=== PATIENT | female | born 1985 | race American Indian/Alaskan Native ===

== ENCOUNTER 2018-03-18 16:00 | Emergency (ER) | payer OTHER ==
[2018-03-18 16:07] VITALS: BP 137/81
[2018-03-18] MEDS ORDERED: TORADOL IM ONE (16:14)
--- NOTE | 2018-03-18 16:18 | Emergency Department Report ---
ED Extremity Problem HPI - General Chief complaint: Extremity Problem,Nontraumatic Stated complaint: SHOULDER AND KNEE PAIN Time Seen by Provider: 03/18/18 16:10 Source: patient Mode of arrival: Ambulatory Limitations: No Limitations - History of Present Illness Initial comments: Patient is palpated 3 years old female with history of arthritis. Patient presented to the ER complaining of right shoulder pain and bilateral knee pain since last night. Patient denied any fever, nausea or vomiting. Patient stated that she's been taking Humira for her arthritis. Patient denies chest pain, shortness of breath, abdominal pain. MD Complaint: extremity pain, joint paint -: Last night Location: right, upper extremity History of Same: Yes -: Yes arthralgia Severity scale (0 -10): 6 Quality: stabbing Consistency: intermittent Improves with: immobilization Associated Symptoms: arthralgias. denies: chest pain, shortness of breath, fever, myalgias, rash - Related Data Allergies Allergy/AdvReac Type Severity Reaction Status Date / Time No Known Allergies Allergy Verified 04/21/16 20:42 ED Review of Systems ROS: Stated complaint: SHOULDER AND KNEE PAIN Other details as noted in HPI Comment: All other systems reviewed and negative Constitutional: denies: chills, fever Respiratory: denies: cough Cardiovascular: denies: chest pain, palpitations, dyspnea on exertion Gastrointestinal: denies: abdominal pain, nausea, vomiting, diarrhea, constipation, hematemesis, melena, hematochezia Genitourinary: denies: urgency Musculoskeletal: denies: back pain Neurological: denies: headache, weakness, numbness, paresthesias, confusion, abnormal gait ED Past Medical Hx - Past Medical History Previous Medical History?: Yes Hx Hypertension: Yes - Surgical History Past Surgical History?: No - Social History Smoking Status: Never Smoker Substance Use Type: None ED Physical Exam - General Limitations: No Limitations General appearance: alert, in no apparent distress - Head Head exam: Present: atraumatic, normocephalic, normal inspection - Eye Eye exam: Present: normal appearance, PERRL - ENT ENT exam: Present: normal exam, normal orophraynx, mucous membranes moist - Neck Neck exam: Present: normal inspection, full ROM. Absent: tenderness, meningismus, lymphadenopathy, thyromegaly - Respiratory Respiratory exam: Present: normal lung sounds bilaterally. Absent: respiratory distress, wheezes, rales, rhonchi, stridor, accessory muscle use, decreased breath sounds, prolonged expiratory - Cardiovascular Cardiovascular Exam: Present: regular rate, normal rhythm, normal heart sounds - GI/Abdominal GI/Abdominal exam: Present: soft, normal bowel sounds. Absent: distended, tenderness, guarding, rebound, rigid, organomegaly, mass, bruit, pulsatile mass , hernia - Extremities Exam Extremities exam: Present: normal inspection, normal capillary refill. Absent: full ROM, tenderness, pedal edema, joint swelling, calf tenderness - Back Exam Back exam: Present: normal inspection, full ROM. Absent: tenderness, CVA tenderness (R), CVA tenderness (L), muscle spasm, paraspinal tenderness, vertebral tenderness, rash noted - Neurological Exam Neurological exam: Present: alert, oriented X3, CN II-XII intact, normal gait - Skin Skin exam: Present: warm, intact, normal color ED Course Vital Signs 03/18/18 16:03 Temperature 97.7 F Pulse Rate 88 Respiratory 16 Rate Blood Pressure 137/81 O2 Sat by Pulse 97 Oximetry Critical care attestation.: If time is entered above; I have spent that time in minutes in the direct care of this critically ill patient, excluding procedure time. ED Disposition Clinical Impression: Right shoulder pain, Arthritis Disposition: - TO HOME OR SELFCARE Is pt being admited?: No Condition: Stable Instructions: Rheumatoid Arthritis (ED)
== END 2018-03-18 16:40 | disposition home or self-care (01) ==
LOC: ED 16:00
DX: M19.90 Unspecified osteoarthritis, unspecified site (principal); M25.511 Pain in right shoulder; I10 Essential (primary) hypertension
CPT/HCPCS: 96372; 99282; J1885

== ENCOUNTER 2021-01-30 09:47 | Emergency (ER) | payer MEDICARE ==
[2021-01-30] MEDS ORDERED: dexAMETHasone 20 MG/5 ML VIAL IM ONE (10:24)
[2021-01-30] MEDS ORDERED: diphenhydrAMINE 25 MG CAP PO ONE (10:24)
[2021-01-30] MEDS ORDERED: FAMOTIDINE 20 MG TAB PO ONE (10:24)
[2021-01-30] MEDS ORDERED: ACETAMINOPHEN 325 MG TAB PO ONE (10:24)
[2021-01-30 10:47] LABS: Basophils % (Auto) 0.4 % (0.0-1.8); Eosinophils % (Auto) 0.2 % (0.0-4.3); Hematocrit 42.1 % (30.3-42.9); Hemoglobin 14.4 gm/dl (10.1-14.3); Lymphocytes % (Auto) 20.3 % (13.4-35.0); Mean Corpuscular HGB Conc 34 % (30-34); Mean Corpuscular Volume 95 fl (79-97); Monocytes # (Auto) 0.2 K/mm3 (0.0-0.8); Monocytes % (Auto) 1.6 % (0.0-7.3); Platelet Count 376 K/mm3 (140-440); Red Blood Count 4.43 M/mm3 (3.65-5.03); Red Cell Distribution Width 13.4 % (13.2-15.2)
[2021-01-30 11:57] LABS: Alanine Aminotransferase 8 units/L (7-56); Albumin 3.4 g/dL (3.9-5); BUN/Creatinine Ratio 13; Blood Urea Nitrogen 12 mg/dL (7-17); Calcium 8.7 mg/dL (8.4-10.2); Hemolysis Index 15
--- NOTE | 2021-01-30 12:53 | Emergency Department Report ---
<GERI VICENTE - Last Filed: 01/30/21 13:08> - General Chief Complaint: Skin Rash Stated Complaint: ALLERGIC REACTION Time Seen by Provider: 01/30/21 10:14 - History of Present Illness Initial Comments: I evaluated patient. Patient has patchy rash in the extremities and torso. I suspect drug reaction. I have asked her to stop her new medications which included a pain medication and muscle relaxer. Patient takes Humira for hidradenitis. She did have tachycardia in triage. I do not suspect sepsis. CBC chemistry with normal meds. I do suspect that tachycardia due to anxiety. She denies chest pain shortness of breath. I have recommended steroids, H1 and H2 agonist. - Related Data Previous Rx's Medication Instructions Recorded Last Taken Type Ondansetron [Zofran Odt] 4 mg PO Q8HR PRN #14 tab.rapdis 03/18/18 Unknown Rx traMADoL [Ultram 50 MG tab] 50 mg PO Q4HR PRN #14 tablet 03/18/18 Unknown Rx Ketorolac [Toradol] 10 mg PO Q6H PRN #15 tablet 01/24/19 Unknown Rx methOCARBAMOL [Robaxin] 750 mg PO Q8H PRN #21 tablet 01/24/19 Unknown Rx Cetirizine HCl [Zyrtec 10mg tab] 10 mg PO DAILY #10 tablet 01/30/21 Unknown Rx Famotidine [Pepcid] 40 mg PO QHS #10 tablet 01/30/21 Unknown Rx Prednisone [predniSONE 10 mg 10 mg PO .TAPER #1 tab.ds.pk 01/30/21 Unknown Rx (6-Day Pack, 21 Tabs)] diphenhydrAMINE [Benadryl CAP] 25 mg PO Q8HR PRN #14 capsule 01/30/21 Unknown Rx Allergies Allergy/AdvReac Type Severity Reaction Status Date / Time No Known Allergies Allergy Verified 04/21/16 20:42 ED Past Medical Hx - Medications Home Medications: Home Medications Medication Instructions Recorded Confirmed Last Taken Type Ondansetron [Zofran Odt] 4 mg PO Q8HR PRN #14 tab.rapdis 03/18/18 Unknown Rx traMADoL [Ultram 50 MG tab] 50 mg PO Q4HR PRN #14 tablet 03/18/18 Unknown Rx Ketorolac [Toradol] 10 mg PO Q6H PRN #15 tablet 01/24/19 Unknown Rx methOCARBAMOL [Robaxin] 750 mg PO Q8H PRN #21 tablet 01/24/19 Unknown Rx Cetirizine HCl [Zyrtec 10mg tab] 10 mg PO DAILY #10 tablet 01/30/21 Unknown Rx Famotidine [Pepcid] 40 mg PO QHS #10 tablet 01/30/21 Unknown Rx Prednisone [predniSONE 10 mg 10 mg PO .TAPER #1 tab.ds.pk 01/30/21 Unknown Rx (6-Day Pack, 21 Tabs)] diphenhydrAMINE [Benadryl CAP] 25 mg PO Q8HR PRN #14 capsule 01/30/21 Unknown Rx ED Medical Decision Making - Lab Data Result diagrams: 01/30/21 10:32 01/30/21 10:32 ED Disposition Clinical Impression: Allergic reaction Qualifiers: Encounter type: initial encounter Qualified Code(s): T78.40XA - Allergy, unspecified, initial encounter Disposition: TO HOME OR SELFCARE Condition: Stable Instructions: Drug Rash Additional Instructions: please take medication as prescribed. do not drive or operate heavy machinery while taking benadryl due to drowsiness. please stop taking the two new medications and add to your allergy list. follow up with your primary care doctor. return to the emergency room immediately for any new or worsening symptoms. Prescriptions: Famotidine [Pepcid] 40 mg PO QHS #10 tablet diphenhydrAMINE [Benadryl CAP] 25 mg PO Q8HR PRN #14 capsule PRN Reason: itching/rash Prednisone [predniSONE 10 mg (6-Day Pack, 21 Tabs)] 10 mg PO .TAPER #1 tab.ds.pk Cetirizine HCl [Zyrtec 10mg tab] 10 mg PO DAILY #10 tablet Referrals: PRIMARY CARE, [Primary Care Provider] - 2-3 Days Print Language: OCCITAN <ANNEL TREVIZO - Last Filed: 01/30/21 21:28> - General Source: patient Mode of arrival: Ambulatory Limitations: No Limitations - History of Present Illness Initial Comments: Patient is a 35-year-old female presents emergency room complaints of a possible allergic reaction that began a couple days ago. Patient states that she has a diffuse rash which itches. She states that she is also had a sore throat for a few days. She states that she recently did just change to gain detergent. States that she also took 2 new medications, she states that she saw her [place] a few days ago for a muscle strain and was given a muscle relaxer and a pain reliever but she is not sure what she is taking. She denies any facial swelling, shortness of breath, difficulty swallowing, sensation of throat closing, chest pain, shortness of breath, palpitations, fever, cough, nausea, vomiting, diarrhea. She denies any sick contacts or recent travel. She has past medical history of hypertension, depression, anxiety. No allergies to medications. ED Review of Systems ROS: Stated complaint: ALLERGIC REACTION Other details as noted in HPI Comment: All other systems reviewed and negative ED Past Medical Hx - Past Medical History Previous Medical History?: Yes Hx Hypertension: Yes Hx Psychiatric Treatment: (Depression,anxiety) - Social History Smoking Status: Current Every Day Smoker Substance Use Type: None ED Physical Exam - General Limitations: No Limitations General appearance: alert, in no apparent distress - Head Head exam: Present: atraumatic, normocephalic - Eye Eye exam: Present: normal appearance - ENT ENT exam: Present: normal orophraynx, mucous membranes moist - Respiratory Respiratory exam: Present: normal lung sounds bilaterally. Absent: respiratory distress, wheezes, rales, rhonchi, stridor, chest wall tenderness, accessory muscle use, decreased breath sounds, prolonged expiratory - Cardiovascular Cardiovascular Exam: Present: normal rhythm, tachycardia, normal heart sounds. Absent: systolic murmur, diastolic murmur, rubs, gallop - Neurological Exam Neurological exam: Present: alert, oriented X3 - Psychiatric Psychiatric exam: Present: normal affect, normal mood - Skin Skin exam: Present: warm, dry, rash (diffuse erythematous macules and patches pr esent diffusely, no blistering, no necrosis, no signs of infection, no skin denuding) ED Course Vital Signs 01/30/21 01/30/21 10:10 13:04 Temperature 99.1 F 98.6 F Pulse Rate 134 H 119 H Respiratory 18 Rate Blood Pressure 138/68 135/78 [Right] O2 Sat by Pulse 98 100 Oximetry ED Medical Decision Making - Lab Data Result diagrams: 01/30/21 10:32 01/30/21 10:32 Lab Results 03/01/30/21 01/30/21 Range/Units 10:32 10:32 10:32 WBC 9.7 (4.5-11.0) K/mm3 RBC 4.43 (3.65-5.03) M/mm3 Hgb 14.4 H (10.1-14.3) gm/dl Hct 42.1 (30.3-42.9) % MCV 95 (79-97) fl MCH 33 H (28-32) pg MCHC 34 (30-34) % RDW 13.4 (13.2-15.2) % Plt Count 376 (140-440) K/mm3 Lymph % (Auto) 20.3 (13.4-35.0) % Mccreary % (Auto) 1.6 (0.0-7.3) % Eos % (Auto) 0.2 (0.0-4.3) % Baso % (Auto) 0.4 (0.0-1.8) % Lymph # (Auto) 2.0 (1.2-5.4) K/mm3 Mccreary # (Auto) 0.2 (0.0-0.8) K/mm3 Eos # (Auto) 0.0 (0.0-0.4) K/mm3 Baso # (Auto) 0.0 (0.0-0.1) K/mm3 Seg Neutrophils % 77.5 H (40.0-70.0) % Seg Neutrophils # 7.5 (1.8-7.7) K/mm3 Sodium 135 L (137-145) mmol/L Potassium 4.2 (3.6-5.0) mmol/L Chloride 102.0 (98-107) mmol/L Carbon Dioxide 24 (22-30) mmol/L Anion Gap 13 mmol/L BUN 12 (7-17) mg/dL Creatinine 0.9 (0.6-1.2) mg/dL Estimated GFR > 60 ml/min BUN/Creatinine Ratio 13 % Glucose 105 H (65-100) mg/dL Calcium 8.7 (8.4-10.2) mg/dL Magnesium 1.90 (1.7-2.3) mg/dL Total Bilirubin 0.40 (0.1-1.2) mg/dL AST 13 (5-40) units/L ALT 8 (7-56) units/L Alkaline Phosphatase 96 (35-129) units/L Total Creatine Kinase 108 (30-135) units/L Total Protein 7.5 (6.3-8.2) g/dL Albumin 3.4 L (3.9-5) g/dL Albumin/Globulin Ratio 0.8 % HCG, Qual Negative (Negative) Vital Signs 01/30/21 01/30/21 10:10 13:04 Temperature 99.1 F 98.6 F Pulse Rate 134 H 119 H Respiratory 18 Rate Blood Pressure 138/68 135/78 [Right] O2 Sat by Pulse 98 100 Oximetry - Medical Decision Making Patient is a 35-year-old female presents emergency room complaints of a possible allergic reaction that began a couple days ago. Patient states that she has a diffuse rash which itches. She states that she is also had a sore throat for a few days. She states that she recently did just change to gain detergent. States that she also took 2 new medications, she states that she saw her [place] a few days ago for a muscle strain and was given a muscle relaxer and a pain reliever but she is not sure what she is taking. She denies any facial swelling, shortness of breath, difficulty swallowing, sensation of throat closing, chest pain, shortness of breath, palpitations, fever, cough, nausea, vomiting, diarrhea. She denies any sick contacts or recent travel. She has past medical history of hypertension, depression, anxiety. No allergies to medications. Initial vitals with elevated heart rate of 134, on repeat heart rate has slightly improved to 119. On exam: diffuse erythematous macules and patches present diffusely, no blistering, no necrosis, no signs of infection, no skin denuding. Examination appears could be consistent with a drug reaction. No signs of angioedema or anaphylaxis. Labs are normal. Discussed case with Dr. Sea Vicente, ER attending who evaluated patient, she agrees that this is likely drug reaction, advised to stop medication, give patient steroids, Zyrtec, Pepcid. I discussed all findings with patient and discussed the importance of stopping new medications and to write these on her allergy list. Patient does have a history of anxiety, tachycardia could be secondary to her anxiety, she has had an elevated heart rate charted in the emergency department before. Patient was given medications while in the emergency department she states that she is feeling much better, she states that her itching has resolved, she denies any palpitations, chest pain, shortness of breath. She has no mucosal involv ement, no signs of SJS. Patient given prescription for prednisone, Zyrtec, Benadryl, Pepcid. Advised patient please take medication as prescribed. do not drive or operate heavy machinery while taking benadryl due to drowsiness. please stop taking the two new medications and add to your allergy list. follow up with your primary care doctor. return to the emergency room immediately for any new or worsening symptoms. - Differential Diagnosis Allergic reaction, drug reaction, contact dermatitis, irritant dermatitis Critical care attestation.: If time is entered above; I have spent that time in minutes in the direct care of this critically ill patient, excluding procedure time. ED Disposition Is pt being admited?: No Does the pt Need Aspirin: No Time of Disposition: 13:05
[2021-01-30 13:05] VITALS: BP 135/78
== END 2021-01-30 13:10 | disposition home or self-care (01) ==
LOC: ED 09:47
DX: T78.40XA Allergy, unspecified, initial encounter (principal); I10 Essential (primary) hypertension; F32.9 Major depressive disorder, single episode, unspecified; F41.9 Anxiety disorder, unspecified; F17.200 Nicotine dependence, unspecified, uncomplicated; Z79.899 Other long term (current) drug therapy; X58.XXXA Exposure to other specified factors, initial encounter
CPT/HCPCS: 36415; 80053; 82550; 83735; 84703; 85025; 96372; 99283; J1100

== ENCOUNTER 2021-07-06 09:40 | Emergency (ER) | payer MEDICARE ==
[2021-07-06 10:01] VITALS: BP 141/78
[2021-07-06] MEDS ORDERED: CYCLOBENZAPRINE 10 MG TAB PO ONE (11:50)
[2021-07-06] MEDS ORDERED: KETOROLAC 60 MG/2 ML INJ IM ONE (11:50)
--- NOTE | 2021-07-06 11:58 | Emergency Department Report ---
ED Back Pain/Injury HPI - General Chief Complaint: Back Pain/Injury Stated Complaint: BACK PAIN Time Seen by Provider: 07/06/21 11:47 Source: patient Limitations: No Limitations - History of Present Illness Initial Comments: Patient is a 36-year-old female presents emergency room complaints of low back pain that began 2 days ago. She states that her pain began when she was at work. 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 She denies any fall or injury. She denies any fever, nausea, vomiting, diarrhea, urinary symptoms, numbness, weakness, bowel or bladder incontinence, saddle numbness. she denies any steroid use, history of cancer, IV drug use. States that she has a past medical history of hidradenitis. No allergies to medications. Last menstrual cycle 06/26/2021. - Related Data Previous Rx's Medication Instructions Recorded Last Taken Type Ondansetron [Zofran Odt] 4 mg PO Q8HR PRN #14 tab.rapdis 03/18/18 Unknown Rx traMADoL [Ultram 50 MG tab] 50 mg PO Q4HR PRN #14 tablet 03/18/18 Unknown Rx Ketorolac [Toradol] 10 mg PO Q6H PRN #15 tablet 01/24/19 Unknown Rx methOCARBAMOL [Robaxin] 750 mg PO Q8H PRN #21 tablet 01/24/19 Unknown Rx Cetirizine HCl [Zyrtec 10mg tab] 10 mg PO DAILY #10 tablet 01/30/21 Unknown Rx Famotidine [Pepcid] 40 mg PO QHS #10 tablet 01/30/21 Unknown Rx Prednisone [predniSONE 10 mg 10 mg PO .TAPER #1 tab.ds.pk 01/30/21 Unknown Rx (6-Day Pack, 21 Tabs)] diphenhydrAMINE [Benadryl CAP] 25 mg PO Q8HR PRN #14 capsule 01/30/21 Unknown Rx Menthol/Camphor [[place] 1 applicatio TP BID #18 oint...g. 07/06/21 Unknown Rx Ointment] Naproxen 375 mg PO BID PRN #20 tablet 07/06/21 Unknown Rx methOCARBAMOL [Robaxin TAB] 500 mg PO BID PRN #14 tab 07/06/21 Unknown Rx Allergies Allergy/AdvReac Type Severity Reaction Status Date / Time No Known Allergies Allergy Verified 07/06/21 09:59 ED Review of Systems ROS: Stated complaint: BACK PAIN Other details as noted in HPI Comment: All other systems reviewed and negative ED Past Medical Hx - Past Medical History Hx Hypertension: Yes Hx Psychiatric Treatment: (Depression,anxiety) - Social History Smoking Status: Current Every Day Smoker Substance Use Type: None - Medications Home Medications: Home Medications Medication Instructions Recorded Confirmed Last Taken Type Ondansetron [Zofran Odt] 4 mg PO Q8HR PRN #14 tab.rapdis 03/18/18 Unknown Rx traMADoL [Ultram 50 MG tab] 50 mg PO Q4HR PRN #14 tablet 03/18/18 Unknown Rx Ketorolac [Toradol] 10 mg PO Q6H PRN #15 tablet 01/24/19 Unknown Rx methOCARBAMOL [Robaxin] 750 mg PO Q8H PRN #21 tablet 01/24/19 Unknown Rx Cetirizine HCl [Zyrtec 10mg tab] 10 mg PO DAILY #10 tablet 01/30/21 Unknown Rx Famotidine [Pepcid] 40 mg PO QHS #10 tablet 01/30/21 Unknown Rx Prednisone [predniSONE 10 mg 10 mg PO .TAPER #1 tab.ds.pk 01/30/21 Unknown Rx (6-Day Pack, 21 Tabs)] diphenhydrAMINE [Benadryl CAP] 25 mg PO Q8HR PRN #14 capsule 01/30/21 Unknown Rx Menthol/Camphor [[place] 1 applicatio TP BID #18 oint...g. 07/06/21 Unknown Rx Ointment] Naproxen 375 mg PO BID PRN #20 tablet 07/06/21 Unknown Rx methOCARBAMOL [Robaxin TAB] 500 mg PO BID PRN #14 tab 07/06/21 Unknown Rx ED Physical Exam - General Limitations: No Limitations General appearance: alert, in no apparent distress - Head Head exam: Present: atraumatic, normocephalic - Eye Eye exam: Present: normal appearance - ENT ENT exam: Present: mucous membranes moist - Neck Neck exam: Present: normal inspection, full ROM. Absent: tenderness, meningismus - Respiratory Respiratory exam: Present: normal lung sounds bilaterally. Absent: respiratory distress, wheezes, rales, rhonchi, stridor, chest wall tenderness, accessory muscle use, decreased breath sounds, prolonged expiratory - Cardiovascular Cardiovascular Exam: Present: regular rate, normal rhythm, normal heart sounds. Absent: systolic murmur, diastolic murmur, rubs, gallop - Back Exam Back exam: Present: normal inspection, full ROM, paraspinal tenderness (left lumbar paraspinal muscular ttp, no midline C-spine, T-spine or L-spine ttp, no step offs, no deformities). Absent: vertebral tenderness - Neurological Exam Neurological exam: Present: alert, oriented X3, CN II-XII intact, normal gait. Absent: motor sensory deficit - Psychiatric Psychiatric exam: Present: normal affect, normal mood - Skin Skin exam: Present: warm, dry, intact ED Course Vital Signs 07/06/21 10:00 Temperature 97.9 F Pulse Rate 97 H Respiratory 12 Rate Blood Pressure 141/78 [Left] O2 Sat by Pulse 99 Oximetry ED Medical Decision Making - Medical Decision Making Patient is a 36-year-old female presents emergency room complaints of low back pain that began 2 days ago. She states that her pain began when she was at work. 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 She denies any fall or injury. She denies any fever, nausea, vomiting, diarrhea, urinary symptoms, numbness, weakness, bowel or bladder incontinence, saddle numbness. she denies any steroid use, history of cancer, IV drug use. States that she has a past medical history of hidradenitis. No allergies to medications. Last menstrual cycle 06/26/2021. Vitals are stable. On exam:left lumbar paraspinal muscular ttp, no midline C-spine, T-spine or L-spine ttp, no step offs, no deformities, no focal neuro deficits.pt has no red flag warning signs of back pain, no trauma, no unexplained weight loss, no neuro deficits, age is not greater than 50, no fever, no IVDU, no steroid use, no hx of cancer. advised pt Please use medication as prescribed as needed. May use ice pack, heating pad, rest, Epsom bath. Do not use heat or ice while using [place] balm. Follow-up with a primary care doctor. Follow-up with a alteration specialist. Return to emergency room for any new or worsening symptoms. Critical care attestation.: If time is entered above; I have spent that time in minutes in the direct care of this critically ill patient, excluding procedure time. ED Disposition Clinical Impression: Low back pain Qualifiers: Chronicity: acute Back pain laterality: left Sciatica presence: without sciati ca Qualified Code(s): M54.5 - Low back pain Disposition: 01 HOME / SELF CARE / HOMELESS Is pt being admited?: No Does the pt Need Aspirin: No Condition: Stable Instructions: Acute Back Pain, Adult Additional Instructions: Please use medication as prescribed as needed. May use ice pack, heating pad, rest, Epsom bath. Do not use heat or ice while using [place] balm. Follow-up with a primary care doctor. Follow-up with a alteration specialist. Return to emergency room for any new or worsening symptoms. Prescriptions: Naproxen 375 mg PO BID PRN #20 tablet PRN Reason: pain methOCARBAMOL [Robaxin TAB] 500 mg PO BID PRN #14 tab PRN Reason: muscle spasm/pain Menthol/Camphor [[place] Ointment] 1 applicatio TP BID #18 oint...g. Referrals: PRIMARY MD SWAPNA [Primary Care Provider] - 2-3 Days PHONG DUNBAR II, MD [Staff Physician] - 2-3 Days Time of Disposition: 11:56 Print Language: BAHAMIAN
== END 2021-07-06 15:49 | disposition home or self-care (01) ==
LOC: ED 09:40
DX: M54.5 Low back pain (principal)
CPT/HCPCS: 96372; 99282; J1885

== ENCOUNTER 2021-12-14 08:00 | Emergency (ER) | payer MEDICARE ==
[2021-12-14] MEDS ORDERED: methylPREDNISolone ACETATE 80 MG/1 ML INJ IM ONE (08:32)
--- NOTE | 2021-12-14 08:32 | Emergency Department Report ---
ED Back Pain/Injury HPI - General Chief Complaint: Extremity Injury, Lower Stated Complaint: RGHT SHOULDER,RGHT HEEL Time Seen by Provider: 12/14/21 08:23 Source: patient Limitations: No Limitations - History of Present Illness Initial Comments: Patient is a 36-year-old female who comes to the emergency room with right chronic shoulder and heel pain. She sees a doctor at [place]. However, due to her transportation limitations she has been unable to get there. Patient states that she has been told she has arthritis. She has been taking oydo-qln-wljdewp medicines with no relief. So she comes to the ER today. She has no systemic symptoms. She has no shortness of breath or chest pain. No fever or chills. Patient is ambulatory mzl-ioc-igxiqwiwm nontoxic and with no focal deficit in the emergency room. Patient has full range of motion of her extremities and is neurovascularly intact. MD Complaint: other -: Gradual, week(s) Similar Symptoms Previously: Yes Place: home Radiation: none Severity: moderate Quality: aching Consistency: intermittent Improves With: immobilization Worsens With: movement Associated Symptoms: denies other symptoms. denies: confusion, weakness, chest pain, numbness, difficulty walking, cough, difficulty urinating, diaphoresis, incontinence, fever/chills, constipation, headaches, abdominal pain, loss of appetite, malaise, nausea/vomiting, rash, seizure, shortness of breath, syncope - Related Data Previous Rx's Medication Instructions Recorded Last Taken Type Ibuprofen [Motrin] 800 mg PO Q8HR PRN #30 tablet 12/14/21 Unknown Rx predniSONE [Deltasone] 20 mg PO DAILY #5 tablet 12/14/21 Unknown Rx Allergies Allergy/AdvReac Type Severity Reaction Status Date / Time No Known Allergies Allergy Verified 12/14/21 08:22 ED Review of Systems ROS: Stated complaint: RGHT SHOULDER,RGHT HEEL Other details as noted in HPI Comment: All other systems reviewed and negative ED Past Medical Hx - Past Medical History Previous Medical History?: No Hx Hypertension: Yes Hx Arthritis: Yes Hx Psychiatric Treatment: (Depression,anxiety) - Surgical History Past Surgical History?: No - Family History Family history: no significant - Social History Smoking Status: Current Every Day Smoker Substance Use Type: None - Medications Home Medications: Home Medications Medication Instructions Recorded Confirmed Last Taken Type Ibuprofen [Motrin] 800 mg PO Q8HR PRN #30 tablet 12/14/21 Unknown Rx predniSONE [Deltasone] 20 mg PO DAILY #5 tablet 12/14/21 Unknown Rx ED Physical Exam - General Limitations: No Limitations General appearance: alert, in no apparent distress - Head Head exam: Present: atraumatic, normocephalic - Eye Eye exam: Present: normal appearance - ENT ENT exam: Present: mucous membranes moist - Neck Neck exam: Present: normal inspection - Respiratory Respiratory exam: Present: normal lung sounds bilaterally. Absent: respiratory distress - Cardiovascular Cardiovascular Exam: Present: regular rate, normal rhythm. Absent: systolic murmur, diastolic murmur, rubs, gallop - GI/Abdominal GI/Abdominal exam: Present: soft, normal bowel sounds - Extremities Exam Extremities exam: Present: normal inspection - Back Exam Back exam: Present: normal inspection - Neurological Exam Neurological exam: Present: alert, oriented X3 - Psychiatric Psychiatric exam: Present: normal affect, normal mood - Skin Skin exam: Present: warm, dry, intact, normal color. Absent: rash ED Course Vital Signs 12/14/21 08:20 Temperature 98.3 F Pulse Rate 90 Respiratory 18 Rate Blood Pressure 158/93 O2 Sat by Pulse 100 Oximetry ED Medical Decision Making - Medical Decision Making Vital Signs 12/14/21 08:20 Temperature 98.3 F Pulse Rate 90 Respiratory 18 Rate Blood Pressure 158/93 O2 Sat by Pulse 100 Oximetry Patient medicated in ER for pain. She has requested local referrals to PCP and orthopedics: Due to her transportation issues to [place]. Patient is ambulatory, nontoxic gbd-cat-nqvwqtold. Patient be discharged home with discharge plan of care including diet, activity, medications and follow-up. She verbalizes understanding of plan of care - Differential Diagnosis a/c pain Critical care attestation.: If time is entered above; I have spent that time in minutes in the direct care o f this critically ill patient, excluding procedure time. ED Disposition Clinical Impression: Shoulder pain Qualifiers: Chronicity: chronic Laterality: right Qualified Code(s): M25.511 - Pain in right shoulder Disposition: 01 HOME / SELF CARE / HOMELESS Is pt being admited?: No Does the pt Need Aspirin: No Condition: Stable Instructions: Shoulder Pain Additional Instructions: warm compresses meds as ordered today follow up with pcp or ortho referral below Prescriptions: predniSONE [Deltasone] 20 mg PO DAILY #5 tablet Ibuprofen [Motrin] 800 mg PO Q8HR PRN #30 tablet PRN Reason: Pain, Moderate (4-6) Referrals: RONNY ROGER MD [Staff Physician] - 3-5 Days HAILEY GUILLEN MD [Staff Physician] - 3-5 Days Time of Disposition: 08:33
[2021-12-14 09:55] VITALS: BP 142/83
== END 2021-12-14 09:55 | disposition home or self-care (01) ==
LOC: ED 08:00
DX: M25.511 Pain in right shoulder (principal); I10 Essential (primary) hypertension; M19.90 Unspecified osteoarthritis, unspecified site; F41.8 Other specified anxiety disorders; F17.200 Nicotine dependence, unspecified, uncomplicated; Z79.899 Other long term (current) drug therapy
CPT/HCPCS: 96372; 99282; J1040

== ENCOUNTER 2021-12-23 08:54 | Outpatient (CLI) | payer MEDICARE ==
--- NOTE | 2021-12-23 09:54 | XRay Report ---
BILATERAL KNEE 4 VIEW(S) INDICATION / CLINICAL INFORMATION: M25.569 COMPARISON: None available. FINDINGS: BONES / JOINT(S): No acute fracture or subluxation. Bilateral mild joint space narrowing of the femor otibial compartments, more pronounced in the medial compartments. SOFT TISSUES: No significant abnormality. ADDITIONAL FINDINGS: None. Signer Name: Bull Bui MD Signed: 12/23/2021 9:49 AM Workstation Name: [id number]
--- NOTE | 2021-12-23 10:16 | XRay Report ---
Right shoulder, 3 views HISTORY: Pain COMPARISON: MRI from 01/24/2019. FINDINGS: No acute fracture or malalignment. There is no significant arthritis. Subacromial space is preserved. Soft tissues are unremarkable. IMPRESSION: No acute process. Signer Name: Sai Rachel MD Signed: 12/23/2021 10:12 AM Workstation Name: [id number]
== END 2021-12-23 08:55 | disposition home or self-care (01) ==
LOC: XRAY 08:54
PROVIDERS: ATTEND Orthopaedic Surgery
DX: M17.0 Bilateral primary osteoarthritis of knee (principal); M25.511 Pain in right shoulder
CPT/HCPCS: 73565

== ENCOUNTER 2022-07-16 08:33 | Emergency (ER) | payer MEDICARE ==
[2022-07-16 08:48] VITALS: BP 140/76
[2022-07-16] MEDS ORDERED: KETOROLAC 30 MG/1 ML INJ IM ONE (11:51)
[2022-07-16] MEDS ORDERED: dexAMETHasone 20 MG/5 ML VIAL IM ONE (11:51)
--- NOTE | 2022-07-16 11:56 | Emergency Department Report ---
Upper Extremity - HPI Chief Complaint: Extremity Injury, Upper Stated Complaint: RIGHT SHOULDER PAIN Upper Extremity: Right Shoulder Occurred When: 3 Days Mechanism: Unsure Severity: moderate Symptoms: Yes Pain with Movement, Yes Limited Range of Movement, No Deformity, No Numbness, No Weakness, No Swelling, No Bruising/Ecchymosis, No Laceration or Abrasion Other History: 37-year-old female presents to the ED complaining of right shoulder pain x3 days. States that pain is a current 8 out of 10 nonradiating. Denies any numbness or tingling. She states that she works at a [employer] where she constantly has to over reach and watch mirror and constantly use her right arm. She denies taking any drsu-bji-whblhia medication for reli ef. Patient has no obvious deformity noted. ED Review of Systems ROS: Stated complaint: RIGHT SHOULDER PAIN Other details as noted in HPI Constitutional: denies: chills, fever Eyes: denies: eye pain, eye discharge, vision change ENT: denies: ear pain, throat pain Respiratory: denies: cough, shortness of breath, wheezing Cardiovascular: denies: chest pain, palpitations Endocrine: no symptoms reported Gastrointestinal: denies: abdominal pain, nausea, diarrhea Genitourinary: denies: urgency, dysuria, discharge Musculoskeletal: denies: back pain, joint swelling, arthralgia Skin: denies: rash, lesions Neurological: denies: headache, weakness, paresthesias Psychiatric: denies: anxiety, depression Hematological/Lymphatic: denies: easy bleeding, easy bruising ED Past Medical Hx - Past Medical History Hx Hypertension: Yes Hx Arthritis: Yes Hx Psychiatric Treatment: (Depression,anxiety) - Social History Smoking Status: Current Every Day Smoker Substance Use Type: None - Medications Home Medications: Home Medications Medication Instructions Recorded Confirmed Last Taken Type Ibuprofen [Motrin] 800 mg PO Q8HR PRN #30 tablet 12/14/21 Unknown Rx predniSONE [Deltasone] 20 mg PO DAILY #5 tablet 12/14/21 Unknown Rx Cyclobenzaprine [Flexeril] 10 mg PO TID PRN 15 Days #30 tab 07/16/22 Unknown Rx Ketorolac [Toradol] 10 mg PO Q6H PRN 5 Days #20 tab 07/16/22 Unknown Rx predniSONE [Deltasone] 50 mg PO QDAY 5 Days #5 tab 07/16/22 Unknown Rx Upper Extremity Exam - Exam General: Vital signs noted. No distress. Alert and acting appropriately. Head and Torso: No HEENT Abnormality, No Neck Tenderness, No Chest/Lungs Abnormality, No Abdominal Tenderness, No Back Tenderness Shoulder Exam: Yes Normal Range of Motion in Shoulder, No Shoulder Tenderness, No Clavicle Tenderness, No Shoulder Deformity, No AC Joint Tenderness Arm Exam: No Arm/Humerus Tenderness, No Arm Deformity Elbow: No Elbow Tenderness, No Normal Range of Motion in Elbow, No Elbow Deformity Forearm: No Forearm Tenderness, No Forearm Deformity, No Pain with Pronation, No Pain with Supination Wrist: Yes Normal ROM in Wrist, No Wrist Tenderness, No Wrist Deformity, No Snuffbox Tenderness, No Pain with Axial Thumb Compression Hand: Yes Normal ROM in Digit(s), No Hand Tenderness, No Hand Deformity, No Digit Tenderness, No Digit(s) Deformity, No Tendon Dysfunction CMS Exam: No Broken Skin, No Normal Distal Pulses, No Normal Capillary Refill, No Normal Distal Sensation ED Course Vital Signs 07/16/22 08:47 Temperature 98.6 F Pulse Rate 110 H Respiratory 18 Rate Blood Pressure 140/76 [Right] O2 Sat by Pulse 96 Oximetry ED Medical Decision Making - Medical Decision Making 37-year-old female presents to the ED complaining of right shoulder pain x3 days. States that pain is a current 8 out of 10 nonradiating. Denies any nu mbness or tingling. She states that she works at a [employer] where she constantly has to over reach and watch mirror and constantly use her right arm. She denies taking any ikqr-tsm-kbadqie medication for relief. Patient has no obvious deformity noted. Physical examination is unremarkable. Rechecked the patient is resting quietly , comfortable and feeling better. I discussed the results of diagnostic study, my clinical impression and the plan for further treatment with the patient. Patient agrees with plan and discharge at this present time. All question addressed. I have given the patient instruction regarding a diagnosis ,expectation ,follow- up and return precaution. I explained to the patient that emergent condition may arise and to return to the ED for new worsen and any new persisting condition. I have explained the importance of following up with the primary care physician or referral physician listed below has instructed. The patient verbalized understanding of discharge instruction. Critical care attestation.: If time is entered above; I have spent that time in minutes in the direct care of this critically ill patient, excluding procedure time. ED Disposition Clinical Impression: Right shoulder pain Qualifiers: Chronicity: acute Qualified Code(s): M25.511 - Pain in right shoulder Disposition: 01 HOME / SELF CARE / HOMELESS Is pt being admited?: No Does the pt Need Aspirin: No Condition: Stable Instructions: How to Use Cold Therapy, Laym-if-Yomy, Shoulder Pain, Keym-ha-Lyzn Additional Instructions: Take medication as prescribed return to the ED for any worsening symptom Prescriptions: predniSONE [Deltasone] 50 mg PO QDAY 5 Days #5 tab Cyclobenzaprine [Flexeril] 10 mg PO TID PRN 15 Days #30 tab PRN Reason: Muscle Spasm Ketorolac [Toradol] 10 mg PO Q6H PRN 5 Days #20 tab PRN Reason: Pain Referrals: [facility] [Provider Group] - 3-5 Days Forms: Work/School Release Form(ED) Time of Disposition: 12:01
== END 2022-07-16 12:17 | disposition home or self-care (01) ==
LOC: ED 08:33
DX: M25.511 Pain in right shoulder (principal); I10 Essential (primary) hypertension; M19.90 Unspecified osteoarthritis, unspecified site; F32.A Depression, unspecified; F17.200 Nicotine dependence, unspecified, uncomplicated
CPT/HCPCS: 96372; 99282; J1100; J1885